=== PATIENT | female | born 1975 | race Caucasian/White ===

== ENCOUNTER 2022-06-03 03:45 | Emergency (ER) | payer MEDICAID, SELFPAY ==
[2022-06-03 03:49] VITALS: BP 159/120; PULSE 114; RESP 20; TEMP 36.7; O2SAT 99; BMI 19.5
--- NOTE | 2022-06-03 04:04 | XR_ITS ---
PROCEDURE INFORMATION: Exam: XR Left Knee Exam date and time: 06/03/2022 4:00 AM Age: 47 years old Clinical indication: Knee and lower leg; Patient HX: Fall, left leg pain from knee down lower leg TECHNIQUE: Imaging protocol: Radiologic exam of the Left knee. Views: 3 views. COMPARISON: No relevant prior studies available. FINDINGS: Bones/joints: Distal femoral mary and screw hardware. No acute fracture or dislocation. Soft tissues: Normal. IMPRESSION: 1. No acute pathology. 2. Distal femoral hardware.
--- NOTE | 2022-06-03 04:04 | XR_ITS ---
PROCEDURE INFORMATION: Exam: XR Left Tibia and Fibula Exam date and time: 06/03/2022 4:01 AM Age: 47 years old Clinical indication: Knee and lower leg; Patient HX: Fall, left leg pain from knee down lower leg TECHNIQUE: Imaging protocol: Radiologic exam of the Left tibia and fibula. Views: 2 views. COMPARISON: CR XR KNEE LT 3V 06/03/2022 4:00 AM FINDINGS: Bones/joints: Distal femoral hardware. No acute fracture or dislocation. Soft tissues: Normal. IMPRESSION: 1. No acute pathology. 2. Distal femoral hardware.
--- NOTE | 2022-06-03 04:22 | PC.NURSE ---
patient complains of nausea, new order received verbally
[2022-06-03 04:30] VITALS: BP 115/76; PULSE 95; O2SAT 98
[2022-06-03 05:00] VITALS: BP 108/66; PULSE 88; O2SAT 98
[2022-06-03 05:31] VITALS: BP 117/80; PULSE 89; O2SAT 96
--- NOTE | 2022-06-03 05:50 | XR_ITS ---
PROCEDURE INFORMATION: Exam: XR Left Hip Exam date and time: 06/03/2022 6:12 AM Age: 47 years old Clinical indication: Hip pain; Prior surgery; Patient HX: Fall, left hip/leg pain TECHNIQUE: Imaging protocol: Radiologic exam of the Left hip. Views: 2 or 3 views hip with pelvis when performed. COMPARISON: No relevant prior studies available. FINDINGS: Bones/joints: Prior mary and screw fixation of proximal femoral diaphyseal fracture with hardware noted. No acute fracture or dislocation. Soft tissues: Unremarkable. IMPRESSION: 1. No acute pathology. 2. Femoral hardware.
--- NOTE | 2022-06-03 05:50 | XR_ITS ---
PROCEDURE INFORMATION: Exam: XR Left Femur Exam date and time: 06/03/2022 6:13 AM Age: 47 years old Clinical indication: Knee; Prior surgery; Patient HX: Fall, left leg pain TECHNIQUE: Imaging protocol: Radiologic exam of the Left femur. Views: 2 views. COMPARISON: CR XR HIP LT 2-3V W/PELVIS 06/03/2022 6:12 AM FINDINGS: Bones/joints: Prior fixation of proximal femoral diaphyseal fracture with mary and screw hardware noted. No acute fracture or dislocation. Soft tissues: Unremarkable. IMPRESSION: 1. No acute pathology. 2. Femoral hardware.
[2022-06-03 06:00] VITALS: BP 127/86; PULSE 79; O2SAT 100
--- NOTE | 2022-06-03 06:37 | HMH.EDFALL ---
Discharge Plan Disposition Patient Disposition: Home, Self-Care Prescriptions Prescriptions: New meloxicam 15 mg tablet 15 mg PO DAILY Qty: 10 0RF Referrals Follow up/Referrals: Provider,Referral, MD [Primary Care Provider] - See instructions Clinical Impressions Clinical Impression: Contusion of lower leg, left Instructions Patient Instructions: DI for Contusion Discharge ED Provider: Eddie Camilo Fall HPI General Chief Complaint: Fall Stated Complaint: AO [id number] @ 0300 fell left leg pain Time Seen by Provider: 06/03/22 06:38 Mode of Arrival: Wheelchair Source of Information: Patient and Medical Record Limitations: No Limitations Description of Symptoms (Recalled from ER Triage Doc. by RN): pt states fell yesterday morning and landed on edge of bed hitting lt leg. pt c/o lt knee and fraga pain. History of Present Illness HPI Narrative: trip injury and hit lt lower leg - tib/fib with pain and swelling - no other acute c/o MD complaint: fall Onset (ago): day(s) Fall from: standing Fall witnessed: no Place fall occurred: home Loss of consciousness: none Prolonged down time: no Symptoms prior to fall: none Context: tripped/slipped Location of injury - extremities: Left: lower leg Severity: moderate Associated symptoms (after fall): other (local pain ) Related Data Previous Rx's Medication Instructions Recorded meloxicam 15 mg tablet 15 mg PO DAILY #10 tabs 06/03/22 Allergies Allergy/AdvReac Type Severity Reaction Status Date / Time No Known Allergies Allergy Verified 06/03/22 04:04 [facility] Disclaimer: The information contained in this section may have been updated after the patient was seen, as this information can be updated by other users. Social History Smoking Status: Current every day smoker alcohol intake: never current occupational status: unemployed Travel in the last 8 weeks: None ROS Obtained: Yes All systems reviewed & no additional complaints except as documented Physical Exam General General appearance: alert Head Head exam: normocephalic Eye Eye exam: Present PERRL and EOMI ENT ENT exam: Present mucous membranes moist Neck Neck exam: Present trachea midline Respiratory Respiratory exam: Absent respiratory distress Cardiovascular Cardiovascular exam: Present regular rate Abdominal Exam Abdominal exam: Present soft Expanded Lower Extremity Exam Left: Hip/Pelvis exam: Present pelvis stable Upper leg exam: Present normal inspection Knee exam: Absent erythema or effusion Lower leg exam: Present tenderness, swelling, Achilles tendon intact and other (no clinical evid of compartment syndrome or dvt ); Absent full ROM or palpable cord Ankle exam: Absent swelling Neurovascular/Tendon exam: Absent pulse deficit, motor deficit or sensory deficit Neurological Exam Neurological exam: Present alert, oriented X3 and CN II-XII intact Psychiatric Psychiatric exam: Present normal affect Skin Skin exam: Absent rash Medical Decision Making Medical Records Medical records reviewed: Yes I reviewed the patient's medical records. Ryan Inquiry Pt receiving controlled substance: No Vital Signs: 06/03/22 03:49 06/03/22 04:30 06/03/22 05:00 Temperature 98.0 F Temperature Source Oral Pulse Rate 95 H 88 Pulse Rate [Right] 114 H Respiratory Rate 20 Blood Pressure 115/76 108/66 L Blood Pressure [Right Arm] 159/120 H Blood Pressure Mean [Right Arm] 133 02 Sat by Pulse Oximetry 99 98 98 Oxygen Delivery Method Room Air Room Air 06/03/22 05:31 06/03/22 06:00 Temperature Temperature Source Pulse Rate 89 79 Pulse Rate [Right] Respiratory Rate Blood Pressure 117/80 127/86 Blood Pressure [Right Arm] Blood Pressure Mean [Right Arm] 02 Sat by Pulse Oximetry 96 100 Oxygen Delivery Method Room Air Room Air Lab Data Lab results reviewed: Yes I reviewed the patient's lab results. Orders (
[2022-06-03 06:59] VITALS: BP 125/75; PULSE 75; RESP 19; TEMP 36.9; O2SAT 98
== END 2022-06-03 07:03 | disposition home or self-care (01) ==
PROVIDERS: Emergency Provider Emergency Medicine
DX: S80.12XA Contusion of left lower leg, initial encounter (principal); W18.49XA Other slipping, tripping and stumbling without falling, initial encounter; Z79.899 Other long term (current) drug therapy; Z72.0 Tobacco use
CPT/HCPCS: 73502; 73552; 73562; 73590; 99284

== ENCOUNTER → 2022-08-26 14:19 | Outpatient (CLI) | payer MEDICAID, SELFPAY ==
--- NOTE | 2022-08-26 14:25 | MM_ITS ---
PROCEDURE INFORMATION: Exam: US Right Breast, Complete US Left Breast, Complete MG Bilateral Diagnostic Breast Tomosynthesis Exam date and time: 08/26/2022 2:21 PM Age: 47 years old Clinical indication: Left breast pain; Retroareolar palp area by phys TECHNIQUE: Imaging protocol: Complete ultrasound of all four quadrants of the right breast and the retroareolar regions, including ultrasound of the axilla when performed. Complete ultrasound of all four quadrants of the left breast and the retroareolar regions, including ultrasound of the axilla when performed. Bilateral Diagnostic tomosynthesis and 2D mammography including computer-aided detection (CAD) when performed. Unilateral or bilateral exam. COMPARISON: No relevant prior studies available. FINDINGS: MAMMOGRAPHY: The breasts are heterogeneously dense, which may obscure small masses. There is no stellate mass, architectural distortion or suspicious microcalcifications in either breast to suggest malignancy. No skin thickening or axillary adenopathy. ULTRASOUND: Sonographic images of the left breast including the retroareolar region, all 4 quadrants and the axilla do not demonstrate any solid masses. Few scattered cysts are present including a 0.9 cm cyst in the left retroareolar region corresponding to the patient's complaint of a palpable abnormality. No architectural distortion or acoustical shadowing. No skin thickening or axillary adenopathy. Sonographic images of the right breast including the retroareolar region, all 4 quadrants and the axilla do not demonstrate any solid masses. Few scattered cysts are present measuring up to 1 cm. No architectural distortion or acoustical shadowing. No skin thickening or axillary adenopathy. IMPRESSION: Palpable abnormality in the left retroareolar region corresponds to a benign cyst. There is no mammographic or sonographic evidence of malignancy.Annual bilateral mammographic screening is recommended unless otherwise clinically indicated. ASSESSMENT: BI-RADS Category 2: Benign
== END ==
PROVIDERS: PCP Counselor Professional; Visit Provider Counselor Professional
DX: N63.20 Unspecified lump in the left breast, unspecified quadrant (principal); N64.4 Mastodynia
CPT/HCPCS: 76641; 77062; 77066; G0279

== ENCOUNTER 2022-12-21 15:42 | Emergency (ER) | payer MEDICAID, SELFPAY ==
[2022-12-21 15:51] VITALS: BP 170/99; PULSE 100; RESP 20; TEMP 36.6; O2SAT 100; BMI 22.1
--- NOTE | 2022-12-21 16:14 | HMH.EDGENADL ---
Discharge Plan Disposition Patient Disposition: Home, Self-Care Prescriptions Prescriptions: New sulfamethoxazole-trimethoprim [Bactrim DS] 800-160 mg tablet 1 tab PO BID 10 Days Qty: 20 0RF cephalexin 750 mg capsule 750 mg PO Q12H 10 Days Qty: 20 0RF No Action buprenorphine-naloxone 8-2 mg tablet, sublingual 1 tab SUBLINGUAL DAILY Referrals Follow up/Referrals: Rajani Conklin APRN [Primary Care Provider] - See instructions Activity Restrictions/Add. Instructions Additional Instructions/Restrictions: Follow-up with your doctor in 2 to 3 days for recheck return to ER if worse Clinical Impressions Clinical Impression: Cellulitis, Insect bites Instructions Patient Instructions: Cellulitis Discharge ED Provider: Ervin Hernandez General Adult HPI General Chief complaint: Skin/Abscess/Foreign Body Stated complaint: left leg pain, poss insect bite Time Seen by Provider: 12/21/22 15:55 Mode of Arrival: Ambulatory Source of Information: Patient Limitations: No Limitations Description of Symptoms (Recalled from ER Triage Doc. by RN): pt to ed c/o left lower leg redness and swelling. pt states she leeanna noticed yesterday morning. pulses present to the left foot. edema noted to the affected area. History of Present Illness HPI narrative: This is a 47-year-old white female who was bitten by an insect yesterday on her left lower leg patient now with redness swelling and tenderness in that region. There is no streaking red lines. No fevers or chills no nausea vomiting no chest pain or shortness of breath. Related Data Home Medications Medication Instructions Recorded Confirmed buprenorphine 8 mg-naloxone 2 mg 1 tab sublingual DAILY Chronic 12/21/22 12/21/22 sublingual tablet opioid abuse Previous Rx's Medication Instructions Recorded cephalexin 750 mg capsule 750 mg PO Q12H 10 days #20 caps 12/21/22 sulfamethoxazole 800 1 tab PO BID 10 days #20 tabs 12/21/22 mg-trimethoprim 160 mg tablet (Bactrim DS) Allergies Allergy/AdvReac Type Severity Reaction Status Date / Time No Known Allergies Allergy Verified 06/03/22 04:04 [facility] Disclaimer: The information contained in this section may have been updated after the patient was seen, as this information can be updated by other users. Medical History (Updated 12/21/22 @ 16:54 by Ervin Hernandez MD) History of drug abuse in remission Surgical History (Updated 12/21/22 @ 16:06 by Jax Walsh, RN) No history of previous surgery Family History (Updated 12/21/22 @ 16:06 by Jax Walsh RN) Other No significant family history Social History Smoking Status: Never smoker alcohol intake: never current occupational status: unemployed Travel in the last 8 weeks: None ROS Obtained: Yes All systems reviewed & no additional complaints except as documented Skin see HPI HEENT no runny nose sore throat Pulmonary no cough or shortness of breath Cardiovascular no chest pain pressure heaviness GI no abdominal pain nausea or vomiting no dysuria pyuria hematuria Musculoskeletal no neck or back pain Endocrine no polydipsia polyuria or polyphasia Psych no SI or HI The rest of the systems were reviewed and found to be negative Physical Exam Narrative Physical exam: Skin: Warm and dry there is an area of erythema and edema mild tenderness along the distal leg. Distal sensorimotor exam is intact and lesions josey with pressure HEENT: Normocephalic atraumatic extract muscles are intact pupils are equal and reactive to light Neck: Supple nontender Lungs: Clear to auscultation Heart: Regular rate and rhythm Abdomen: NABS soft nontender Extremities: No clubbing cyanosis or edema Neurologic: No unilateral weakness or numbness Lymphatic: No cervical or inguinal adenopathy Musculoskeletal: No tenderness of the dorsal or lumbar spine Psych: No SI or HI General G
[2022-12-21 16:30] VITALS: BP 130/81; PULSE 95; RESP 18; O2SAT 100
--- NOTE | 2022-12-21 16:31 | PC.NURSE ---
Blood cultures collected and sent per protocol
[2022-12-21 16:41] LABS: Chloride 101 mmol/L (98-107); Sodium 134 mmol/L (136-145)
[2022-12-21 16:42] LABS: Basophils % 0.6 % (0.1-2.0); Eosinophils # 0.1 K/mm3 (0.0-0.4); Eosinophils % 1.7 % (0.1-12.0); Hematocrit 39.8 % (37.0-47.0); Hemoglobin 13.5 g/dL (12.2-16.2); Mean Corpuscular HGB Conc 33.8 g/dL (31.8-35.4); Mean Corpuscular Hemoglobin 31.2 pg (27.0-31.2); Mean Corpuscular Volume 92.2 fl (81-99); Mean Platelet Volume 9.9 fl (7.4-10.4); Monocytes # 0.4 K/mm3 (0.1-1.0); Monocytes % 5.9 % (1.7-9.3); Neutrophils # 4.9 K/mm3 (1.8-7.8); Neutrophils % 64.9 % (37.0-80.0); Platelet Count 176 K/mm3 (142-424); Red Blood Count 4.32 M/mm3 (4.20-5.40); White Blood Count 7.5 K/mm3 (4.8-10.8)
[2022-12-21 16:44] LABS: Alanine Aminotransferase 120 U/L (12-78); Albumin Level 3.9 g/dl (3.5-5.0); Albumin/Globulin Ratio 1.3 (1.1-1.8); Alkaline Phosphatase 95 U/L (38-126); Aspartate Amino Transferase 121 U/L (14-36); Bilirubin,Total 0.8 mg/dl (0.2-1.3); Blood Urea Nitrogen 11 mg/dl (7-17); Carbon Dioxide 26 mmol/L (22.0-30.0); Creatinine Clearance Estimated 126 mL/min (50-200); Estimated Glomerular Filt Rate 133 ml/min (>60); GFR (African American) 161 ML/MIN (>60); Total Protein,Serum 6.9 g/dl (6.3-8.2)
[2022-12-21 16:45] LABS: Calcium 8.1 mg/dl (8.4-10.2); Glucose 89 mg/dl (74-100)
[2022-12-21 16:47] LABS: Lactic Acid < 0.5 mmol/L (0.7-2.1)
[2022-12-21 17:12] VITALS: BP 138/87; PULSE 74; RESP 16; TEMP 36.7; O2SAT 97
== END 2022-12-21 17:14 | disposition home or self-care (01) ==
PROVIDERS: Emergency Provider Emergency Medicine; PCP Counselor Professional
DX: L03.116 Cellulitis of left lower limb; S80.862A Insect bite (nonvenomous), left lower leg, initial encounter; W57.XXXA Bitten or stung by nonvenomous insect and other nonvenomous arthropods, initial encounter
CPT/HCPCS: 80053; 83605; 85025; 87040; 99283; 99284

== ENCOUNTER → 2023-02-08 15:21 | Outpatient (CLI) | payer MEDICAID, SELFPAY ==
[2023-02-08 16:45] LABS: Basophils % 0.6 % (0.1-2.0); Eosinophils # 0.2 K/mm3 (0.0-0.4); Hematocrit 42.7 % (37.0-47.0); Hemoglobin 13.6 g/dL (12.2-16.2); Lymphocytes # 1.6 K/mm3 (0.7-4.5); Lymphocytes % 32.3 % (10-50); Mean Corpuscular HGB Conc 31.9 g/dL (31.8-35.4); Mean Corpuscular Hemoglobin 31.2 pg (27.0-31.2); Mean Corpuscular Volume 97.6 fl (81-99); Mean Platelet Volume 9.4 fl (7.4-10.4); Monocytes # 0.2 K/mm3 (0.1-1.0); Monocytes % 4.1 % (1.7-9.3); Neutrophils # 2.8 K/mm3 (1.8-7.8); Platelet Count 153 K/mm3 (142-424); Red Blood Count 4.38 M/mm3 (4.20-5.40); Red Cell Distribution Width 13.2 % (11.5-17.5); White Blood Count 4.8 K/mm3 (4.8-10.8)
[2023-02-08 17:14] LABS: Alanine Aminotransferase 191 U/L (12-78); Albumin Level 4.1 g/dl (3.5-5.0); Albumin/Globulin Ratio 1.3 (1.1-1.8); Alkaline Phosphatase 96 U/L (38-126); Anion Gap 11.9 mEq/L (5-15); Aspartate Amino Transferase 150 U/L (14-36); Bilirubin,Total 0.5 mg/dl (0.2-1.3); Blood Urea Nitrogen 9 mg/dl (7-17); Calcium 8.6 mg/dl (8.4-10.2); Carbon Dioxide 28 mmol/L (22.0-30.0); Chloride 105 mmol/L (98-107); Estimated Glomerular Filt Rate 107 ml/min (>60); GFR (African American) 130 ML/MIN (>60); Globulin 3.1 g/dL (1.3-3.2); Glucose 92 mg/dl (74-100); Potassium 3.9 mmoL/L (3.5-5.1); Sodium 141 mmol/L (136-145); Total Protein,Serum 7.2 g/dl (6.3-8.2)
[2023-02-08 17:33] LABS: Amphetamine/Metha Screen,Urine Positive ng/ml (<1000); Barbiturates Screen,Urine Negative ng/ml (<200); Benzodiazepines Screen,Urine Negative ng/ml (<200); Cannabinoid Screen,Urine Positive ng/ml (<50); Cocaine Screen,Urine Negative ng/ml (<300); Methadone Screen,Urine Negative ng/ml (<300); Opiate Screen,Urine Negative ng/ml (<300); Phencyclidine Screen,Urine Negative ng/ml (<25)
[2023-02-08 17:43] LABS: Thyroid Stimulating Hormone 1.72 uIU/mL (0.465-4.68)
[2023-02-10 08:34] LABS: HIV Screen 4th Generation wRfx Non Reactive (Non Reactive)
[2023-02-10 09:15] LABS: Hep B Core Ab, Total Positive (Negative)
[2023-02-11 00:09] LABS: Neisseria gonorrhoeae, NAA Negative (Negative)
[2023-02-11 19:08] LABS: HCV Genotype Charge YES; Hepatitis C Genotype 1a (.)
[2023-02-23 09:55] LABS: Hepatitis B Surface Antigen Negative
[2023-02-23 09:56] LABS: Treponema pallidum Antibodies Non Reactive
== END ==
PROVIDERS: Neuromusculoskeletal Medicine, Sports Medicine; PCP Emergency Medicine; Visit Provider Nurse Practitioner Family
DX: F15.20 Other stimulant dependence, uncomplicated (principal); F11.20 Opioid dependence, uncomplicated; Z11.4 Encounter for screening for human immunodeficiency virus [HIV]
CPT/HCPCS: 36415; 80053; 80305; 84443; 85025; 86703; 86704; 86780; 87340; 87491; 87522; 87591; 87902; G0432